=== PATIENT | female | born 1970 | race Two or more races ===

== ENCOUNTER → 2020-02-11 | Day surgery (SDC) | payer OTHER ==
[~2020-02-11] VITALS: Ht 157.5 cm; Wt 66.2 kg
[2020-02-11] VITALS (10 sets, daily range): BP systolic 117–135; BP diastolic 78–89
[~2020-02-11] MED LIST: Bupivacaine 0.25% Inj 30ml INJ ONE; Bupivacaine w/Epi 0.5% 30ml Vial INJ ONE; D5 1/2NS 1,000 ML IV SCH; Duramorph PF 5mg/10ml amp ONE; Glycopyrrolate 0.2mg/ml 1ml Vial ONE; HYDROcodone/Acetamin 5/325 tab ORAL PRN; HYDROmorphone 1mg/ml Carpuject SUBQ PRN; Kenalog-40 1ml Vial ONE; Ketorolac 30mg Inj ONE; LR 1000ml ONE; Lidocaine 1% 10mg/ml/Epi 0.005mg/ml 30ml vial INJ ONE; Lidocaine 1% MPF 10mg/ml 5ml ONE; Metoclopramide 10mg/2ml Inj IVP PRN; Metoclopramide 10mg/2ml Inj ONE; Midazolam 2mg/2ml Inj ONE; NS Irrig 2000ml IRRIG ONE; OMEPRAZOLE40 M1 ORAL; Tylenol #3 tab (300mg/30mg) ORAL PRN; ceFAZolin 1gm IVPB IVPB ONE; celeBREX 200mg Cap **SURGERY PATIENTS ONLY ORAL ONE; fentaNYL 100 mcg/2 mL IV ONE; fentaNYL 100 mcg/2 mL IV PRN; oxyCONTIN 20mg tab ORAL ONE
--- NOTE | 2020-02-11 07:48 | Operative Note - PDOC ---
Operative Note Operative Note Pre-op Diagnosis: left knee internal derangment Procedure: see op report Post-op Diagnosis: same as pre-op plus Operative Findings: consistent w/pre-op dx studies Anesthesia: regional Specimen: none Complications: none Condition: stable Implant(s) used?: No Alexis Julio MD Feb 11, 2020 07:48
--- NOTE | 2020-02-11 07:48 | Pre-Procedure Note/Attestation ---
Pre-Procedure Note/Attestation Complete Prior to Procedure Planned Procedure: left Procedure Narrative: knee arthroscopy, possible menisectomy Indications for Procedure Pre-Operative Diagnosis: left knee internal derangment Attestation I attest that I discussed the nature of the procedure; its benefits; risks and complications; and alternatives (and the risks and benefits of such alternatives ), prior to the procedure, with the patient (or the patient's legal retail service representative). I attest that, if there was a reasonable possibility of needing a blood transfusion, the patient (or the patient's legal retail service representative) was given the [facility] standardized written summary, pursuant to the [place] Blood Safety Act ([place] Health and Safety Code # 1645, as amended). I attest that I re-evaluated the patient just prior to the surgery and that there has been no change in the patient's H&P, except as documented below: Alexis Julio MD Feb 11, 2020 07:48
--- NOTE | 2020-02-11 12:57 | Anethesia Preoperative Eval ---
Anesthesia Pre-op PMH/ROS General Date of Evaluation: Feb 11, 2020 Time of Evaluation: 12:21 Anesthesiologist: espinoza ASA Score: ASA 2 Mallampati Score Class I : Soft palate, uvula, fauces, pillars visible Class II: Soft palate, uvula, fauces visible Class III: Soft palate, base of uvula visible Class IV: Only hard plate visible Mallampati Classification: Class II Surgeon: antonio Diagnosis: knee pain Surgical Procedure: left knee arthroscopy Anesthesia History: none Family History: no anesthesia problems Allergies: Coded Allergies: No Known Allergies (Unverified , 02/10/20) Medications: see eMAR Patient NPO?: Yes NPO Date: Feb 11, 2020 NPO Time: 00:01 Past Medical History Cardiovascular: Denies: HTN, CAD, [place], valve dz, arrhythmia, other Pulmonary: Denies: asthma, COPD, JORGE, other Gastrointestinal/Genitourinary: Reports: GERD; Denies: CRI, ESRD, other Neurologic/Psychiatric: Denies: dementia, CVA, depression/anxiety, TIA, other Endocrine: Denies: DM, hypothyroidism, steroids, other HEENT: Denies: cataract (L), cataract (R), glaucoma, [place] (L), [place] (R), other Hematology/Immune: Denies: anemia, DVT, bleeding disorder, other Musculoskeletal/Integumentary: Reports: OA; Denies: RA, DJD, DDD, edema, other PSxH Narrative: knee surgery Anesthesia Pre-op Phys. Exam Physician Exam Last Vital Signs Date Time Temp Pulse Resp B/P (MAP) Pulse Ox O2 Delivery O2 Flow Rate FiO2 02/11/20 08:29 Room Air 02/11/20 08:23 97.4 55 18 130/78 99 Constitutional: NAD Neurologic: CN 2-12 intact Cardiovascular: RRR Respiratory: CTA Gastrointestinal: S/NT/ND Airway Exam Mallampati Classification 2 Mallampati Score: Class II MO: full ROM: full Dentures: no upper, no lower Anesthesia Pre-op A/P Studies Pre-op Studies: EKG - sr Risk Assessment & Plan Assessment: covid neg Plan: general Status Change Before Surgery: No Pre-Antibiotics Drug: ancef Given Within 1 Hr of Incision: Yes Time Given: 12:30 Mer Calix CRNA Feb 11, 2020 12:57
--- NOTE | 2020-02-11 13:13 | Immediate Post-Op Evaluation ---
Immediate Post-Op Evalulation Immediate Post-Op Evalulation Procedure: left knee scope Date of Evaluation: Feb 11, 2020 Time of Evaluation: 13:12 IV Fluids: 800 Blood Pressure Systolic: 124 Blood Pressure Diastolic: 78 Pulse Rate: 92 Respiratory Rate: 14 O2 Sat by Pulse Oximetry: 100 Temperature (Fahrenheit): 97.5 Nausea: No Vomiting: No Complications none Patient Status: awake, reacts, patent Hydration Status: adequate Drug: ancef Given Within 1 Hr of Incision: Yes Time Given: 12:30 Mer Calix CRNA Feb 11, 2020 13:13
--- NOTE | 2020-02-11 13:47 | 48 Hour Post Anesthesia Eval ---
Post Anesthesia Evaluation Procedure: left knee scope Date of Evaluation: Feb 11, 2020 Time of Evaluation: 13:47 Blood Pressure Systolic: 135 0: 84 Pulse Rate: 80 Respiratory Rate: 14 O2 Sat by Pulse Oximetry: 98 Airway: patent Nausea: No Vomiting: No Hydration Status: adequate Cardiopulmonary Status: stable Mental Status/LOC: patient returned to baseline Post-Anesthesia Complications: none Follow-up care needed: N/A Mer Calix CRNA Feb 11, 2020 13:47
--- NOTE | 2020-02-11 14:44 | Operative Note - Dictated ---
DATE OF OPERATION: 02/11/2020 NOTE: INCOMPLETE DICTATION POSTOPERATIVE DIAGNOSIS: Left knee internal derangement and a possible meniscal tear. POSTOPERATIVE DIAGNOSES: 1. Grade 2 chondral damage, medial femoral condyle with loose chondral flaps. 2. Discoid lateral meniscus 3. Lateral tibial plateau fracture. PROCEDURE: 1. Left knee diagnostic arthroscopy and chondroplasty, medial femoral condyle. 2. Synovectomy of the medial, lateral, and patellofemoral compartment. SURGEON: Alexis Julio MD. ANESTHESIA: General. INDICATION FOR PROCEDURE: The patient is a pleasant female with significant injury to the left knee. The patient continued to have lateral joint sided pain. MRI which showed possible meniscal tear secondary to chondral damage after . INCOMPLETE DICTATION Alexis Julio M.D. DR: TELMA JOB#: [id number] CC:
--- NOTE | 2020-02-11 16:00 | Operative Note - Dictated ---
DATE OF OPERATION: 02/11/2020 PREOPERATIVE DIAGNOSIS: Left knee lateral tibial plateau with possible meniscal tear and secondary chondral damage. POSTOPERATIVE DIAGNOSES: 1. Left medial compartment grade 2 chondral flaps. 2. Hypertrophic synovial tissue medial, lateral, and patellofemoral compartment. 3. Lateral discoid meniscus. 4. Lateral tibial plateau fracture. PROCEDURE: 1. Left knee diagnostic arthroscopy with synovectomy of the medial, lateral, and patellofemoral compartment. 2. Gentle chondroplasty medial femoral condyle. SURGEON: Alexis Julio MD. ANESTHESIA: General. INDICATION FOR PROCEDURE: Patient is a pleasant female who has had significant injury to left knee. Patient diagnosed with a lateral tibial plateau fracture with associated meniscal tear. She elected to undergo left knee diagnostic arthroscopy and possible meniscectomy. Risks, limitations, expectations, and complications of the procedure were discussed in detail. All questions addressed. DESCRIPTION OF PROCEDURE: After informed consent was obtained, patient was brought to the operating room. Patient was placed under anesthesia. Left leg was prepped and draped in a sterile manner. Time-out was performed. Inferolateral stab incision was then made. Camera was placed in the patellofemoral compartment. There was hypertrophic synovial tissue making visualization somewhat difficult. Medial compartment was entered. Medial working portal was established. Synovectomy of the medial compartment extending in the intercondylar notch lateral compartment was performed. The medial meniscus probe noted to be intact. There were some chondral flaps on the posterior medial aspect of the femoral condyle. Gentle chondroplasty was performed. The ACL was probed, noted to be intact. Lateral compartment was entered and there was a type 3 discoid lateral meniscus. No chondral damage in the lateral femoral condyle. The camera was then repositioned in the patellofemoral compartment. Completion of the synovectomy was performed. Once that was done, the instruments were removed. Portal sites closed using 3-0 Monocryl sutures. Steri-Strips and a sterile dressing were applied. ESTIMATED BLOOD LOSS: None. COMPLICATIONS: None. SPECIMENS: None. IMPLANTS: None. Alexis Julio M.D. DR: LION JOB#: [id number] CC: TEMITOPE
== END | disposition home or self-care (01) ==
LOC: SUR 07:47
DX: M23.301 Other meniscus derangements, unspecified lateral meniscus, left knee (principal); M67.262 Synovial hypertrophy, not elsewhere classified, left lower leg; K21.9 Gastro-esophageal reflux disease without esophagitis; M19.90 Unspecified osteoarthritis, unspecified site; Z90.710 Acquired absence of both cervix and uterus; S82.142A Displaced bicondylar fracture of left tibia, initial encounter for closed fracture; X58.XXXA Exposure to other specified factors, initial encounter; Y92.9 Unspecified place or not applicable
CPT/HCPCS: 29876; 94003; J0690; J1885; J2250; J2405; J2704; J2765; J3010; J3301; J3490; J7120; U0002; 94150

== ENCOUNTER 2020-08-10 06:35 | Inpatient (IN) | payer OTHER ==
[~2020-08-10] VITALS: Ht 154.9 cm; Wt 63.5 kg
[2020-08-10] VITALS (17 sets, daily range): BP systolic 104–144; BP diastolic 64–93
[~2020-08-10 06:35] MED LIST changes: -Bupivacaine 0.25% Inj 30ml INJ ONE; -Bupivacaine w/Epi 0.5% 30ml Vial INJ ONE; -D5 1/2NS 1,000 ML IV SCH; -Duramorph PF 5mg/10ml amp ONE; -Glycopyrrolate 0.2mg/ml 1ml Vial ONE; -HYDROcodone/Acetamin 5/325 tab ORAL PRN; -HYDROmorphone 1mg/ml Carpuject SUBQ PRN; +IBUPROFEN600 M1 ORAL; -Kenalog-40 1ml Vial ONE; -Ketorolac 30mg Inj ONE; -LR 1000ml ONE; -Lidocaine 1% 10mg/ml/Epi 0.005mg/ml 30ml vial INJ ONE; -Lidocaine 1% MPF 10mg/ml 5ml ONE; -Metoclopramide 10mg/2ml Inj IVP PRN; -Metoclopramide 10mg/2ml Inj ONE; -Midazolam 2mg/2ml Inj ONE; -NS Irrig 2000ml IRRIG ONE; -Tylenol #3 tab (300mg/30mg) ORAL PRN; -ceFAZolin 1gm IVPB IVPB ONE; -celeBREX 200mg Cap **SURGERY PATIENTS ONLY ORAL ONE; -fentaNYL 100 mcg/2 mL IV ONE; -fentaNYL 100 mcg/2 mL IV PRN; -oxyCONTIN 20mg tab ORAL ONE
[2020-08-10] MEDS ORDERED: ceFAZolin sod 2 GM in NS 55 ML IVPB ONE (07:00)
--- NOTE | 2020-08-10 07:14 | Pre-Procedure Note/Attestation ---
Pre-Procedure Note/Attestation Complete Prior to Procedure Planned Procedure: not applicable Procedure Narrative: C56 artificial disc replacment and C67 anterior cervical discectomy and fusion Indications for Procedure Pre-Operative Diagnosis: C56,67 herniation Attestation I attest that I discussed the nature of the procedure; its benefits; risks and complications; and alternatives (and the risks and benefits of such alternatives), prior to the procedure, with the patient (or the patient's legal construction sales representative). I attest that, if there was a reasonable possibility of needing a blood transfusion, the patient (or the patient's legal construction sales representative) was given the [facility] standardized written summary, pursuant to the [place] Blood Safety Act ([place] Health and Safety Code # 1645, as amended). I attest that I re-evaluated the patient just prior to the surgery and that there has been no change in the patient's H&P, except as documented below: Dexter Varner MD Aug 10, 2020 07:14
[2020-08-10] MEDS ORDERED: HYDROcodone/Acetamin 7.5/325 tab ORAL PRN ×3 (07:15→08:00)
[2020-08-10] MEDS ORDERED: Morphine Sulfate 2mg/ml Inj(IV/IM USE ONLY) IV PRN (07:15)
[2020-08-10] MEDS ORDERED: Morphine Sulfate 4mg/ml Inj (IV USE ONLY) IV PRN ×2 (07:15)
[2020-08-10] MEDS ORDERED: Milk of Magnesia 30ml Ud ORAL PRN (07:15)
[2020-08-10] MEDS ORDERED: Naloxone 0.4mg/ml Inj IVP PRN (07:15)
[2020-08-10] MEDS ORDERED: Metoclopramide 10mg/2ml Inj IVP PRN ×2 (07:15→08:00)
[2020-08-10] MEDS ORDERED: Chloraseptic Spray 20mL Bottle ORAL PRN (07:15)
[2020-08-10] MEDS ORDERED: HYDROmorphone 1mg/ml Carpuject IVP PRN (07:15)
[2020-08-10] MEDS ORDERED: HYDROcodone/Acetamin 5/325 tab ORAL PRN ×2 (07:15→08:00)
--- NOTE | 2020-08-10 07:15 | Brief Operative Note ---
Immediate Post Operative Note Operative Note Chief Complaint: neck pain and radic Pre-op Diagnosis: C56,67 herniation Procedure: C56 artificial disc replacment and C67 anterior cervical discectomy and fusion Post-op Diagnosis: same as pre-op Findings: consistent w/pre-op dx studies Surgeon: Telly Third Hand: Sumanth Anesthesiologist: Rommel Anesthesia: general Specimen: none Complications: none Condition: stable Fluids: IVF Estimated Blood Loss: minimal Drains: none Implant(s) used?: Yes - nuvasive interlock c, prodisc 5 Dexter Varner MD Aug 10, 2020 07:15
[2020-08-10] MEDS ORDERED: TYLENOL EXTRA500 MG ORAL ×2 (07:16)
[2020-08-10] MEDS ORDERED: fentaNYL 100 mcg/2 mL IV PRN (08:00)
[2020-08-10] MEDS ORDERED: Midazolam 2mg/2ml Inj IVP PRN (08:00)
[2020-08-10] MEDS ORDERED: Labetalol 5mg/ml 20ml vial IV PRN (08:00)
[2020-08-10] MEDS ORDERED: oxyCODONE HCL/Acetaminophen 5/325mg ORAL PRN (08:00)
[2020-08-10] MEDS ORDERED: Hydromorphone 0.5mg/0.5ml inj IVP PRN (08:00)
[2020-08-10] MEDS ORDERED: DiphenhydrAMINE 50mg/ml Inj IVP PRN (08:00)
[2020-08-10] MEDS ORDERED: Atropine Sulfate 0.4mg/ml inj IVP PRN (08:00)
[2020-08-10] MEDS ORDERED: Meperidine 25mg/1ml Inj (FOR RIGORS ONLY) IV PRN (08:00)
[2020-08-10] MEDS ORDERED: Acetaminophen (Non formulary) 100 ML IV ONE (08:00)
[2020-08-10] MEDS ORDERED: LR 1000ml 1,000 ML IVLG SCH (08:00)
[2020-08-10] MEDS ORDERED: Ketorolac 30mg Inj IV PRN ×2 (08:00)
[2020-08-10] MEDS ORDERED: LORazepam Inj 2mg/ml 1ml IV PRN (08:00)
--- NOTE | 2020-08-10 08:01 | Anethesia Preoperative Eval ---
Anesthesia Pre-op PMH/ROS General Date of Evaluation: Aug 10, 2020 Time of Evaluation: 09:15 Anesthesiologist: Jose ASA Score: ASA 3 Mallampati Score Class I : Soft palate, uvula, fauces, pillars visible Class II: Soft palate, uvula, fauces visible Class III: Soft palate, base of uvula visible Class IV: Only hard plate visible Mallampati Classification: Class II Surgeon: Telly Diagnosis: Neck Pain Surgical Procedure: ADR C5-6, ACDF C6-7 Anesthesia History: none Family History: no anesthesia problems Allergies: Coded Allergies: No Known Allergies (Unverified , 08/08/20) Medications: see eMAR Patient NPO?: Yes Past Medical History Gastrointestinal/Genitourinary: Reports: GERD Endocrine: Reports: DM PSxH Narrative: R Hallux SX, L Wrist SX, WILLOW C/S Anesthesia Pre-op Phys. Exam Physician Exam Last Vital Signs Date Time Temp Pulse Resp B/P (MAP) Pulse Ox O2 Delivery O2 Flow Rate FiO2 08/10/20 07:38 Room Air 08/10/20 07:18 97.0 20 124/78 (93) 98 Constitutional: NAD Neurologic: CN 2-12 intact Cardiovascular: RRR Respiratory: CTA Gastrointestinal: S/NT/ND Airway Exam Mallampati Score: Class II MO: full ROM: limited Teeth: missing, intact Anesthesia Pre-op A/P Risk Assessment & Plan Assessment: ASA 3 Plan: GA, SED, GlideScope Status Change Before Surgery: No Pre-Antibiotics Dru Grams Ancef IV Given Within 1 Hr of Incision: Yes Time Given: 09:36 Gilberto Garcia MD Aug 10, 2020 08:00
--- NOTE | 2020-08-10 08:06 | Immediate Post-Op Evaluation ---
Immediate Post-Op Evalulation Immediate Post-Op Evalulation Procedure: ADR C5-6, ACDF C6-7 Date of Evaluation: Aug 10, 2020 Time of Evaluation: 11:52 IV Fluids: 1000 LR Blood Products: 0 Estimated Blood Loss: 50 Urinary Output: 600 Blood Pressure Systolic: 123 Blood Pressure Diastolic: 83 Pulse Rate: 78 Respiratory Rate: 16 O2 Sat by Pulse Oximetry: 100 Temperature (Fahrenheit): 97 Pain Score (1-10): 2 Nausea: No Vomiting: No Complications 0 Patient Status: awake, reacts, patent, extubated, none Hydration Status: adequate Dru Grams Ancef IV Given Within 1 Hr of Incision: Yes Time Given: 09:36 Gilberto Garcia MD Aug 10, 2020 08:06
[2020-08-10] MEDS ORDERED: Sodium Chloride 10ml vial INJ ONE ×2 (08:16→09:00)
[2020-08-10] MEDS ORDERED: Lidocaine 1% MPF 10mg/ml 5ml ONE ×2 (08:16→09:08)
[2020-08-10] MEDS ORDERED: NS Irrig 1000ml ONE (09:00)
[2020-08-10] MEDS ORDERED: propofoL 1,000mg/100ml IV ONE (09:00)
[2020-08-10] MEDS ORDERED: Rocuronium Bromide 50mg/5ml Inj IV ONE (09:00)
[2020-08-10] MEDS ORDERED: LR 1000ml ONE (09:00)
[2020-08-10] MEDS ORDERED: Sterile Water Irrig 1000ml IRRIG ONE (09:00)
[2020-08-10] MEDS ORDERED: Thrombin 5000 units TOPIC ONE (09:15)
[2020-08-10] MEDS ORDERED: Bacitracin 50000 Units Vial ONE (09:15)
[2020-08-10] MEDS ORDERED: Gelfoam Size TOPIC ONE (09:16)
[2020-08-10] MEDS ORDERED: Glycopyrrolate 0.2mg/ml 1ml Vial ONE ×2 (10:34→10:35)
[2020-08-10] MEDS ORDERED: Neostigmine 1mg/ml 10ml Inj ONE (10:35)
--- NOTE | 2020-08-10 11:38 | 48 Hour Post Anesthesia Eval ---
Post Anesthesia Evaluation Procedure: ADR C5-6, ACDF C6-7 Date of Evaluation: Aug 10, 2020 Time of Evaluation: 14:23 Blood Pressure Systolic: 133 0: 78 Pulse Rate: 74 Respiratory Rate: 18 Temperature (Fahrenheit): 98 O2 Sat by Pulse Oximetry: 100 Airway: patent Nausea: No Vomiting: No Pain Intensity: 2 Hydration Status: adequate Cardiopulmonary Status: Stable Mental Status/LOC: patient returned to baseline Follow-up Care/Observations: 0 Post-Anesthesia Complications: 0 Follow-up care needed: N/A Gilberto Garcia MD Aug 10, 2020 11:38
--- NOTE | 2020-08-10 13:00 | NUR ---
NURSE NOTES: Admitted pt from OR department. s/p ADR and ACDF. site covered with clear dressing. no bleeding noted. pt c/o pain 08/09, does not want pain med at this time. no acute distress noted. on O2 @ 2l/min via NC. call light within reach.
--- NOTE | 2020-08-10 13:08 | Diagnostic Imaging Report ---
XRAY C Spine 2-3v CLINICAL HISTORY: Neck pain. COMPARISON: None FINDINGS: Fluoroscopy independent procedure performed for cervical fusion. 30.4 seconds of fluoroscopy time utilized by the ordering physician. Total cumulative dose is 2.9 mGy and 0.22405 Gy.cm2. Total of 4 spot images are obtained . IMPRESSION: FLUOROSCOPY GUIDED PROCEDURE.
--- NOTE | 2020-08-10 14:00 | NUR ---
NURSE NOTES: MADE ROUNDS PT ALERT AND AWAKE, NO ACUTE DISTRESS NOTED, RATES PAIN 3/10. PT SAID SHE DOES NOT WANT PAIN MED AT THIS TIME
[2020-08-10] MEDS: Docusate 100mg cap ORAL SCH (17:49)
[2020-08-10] MEDS: ceFAZolin sod 1 GM in D5W 55 ML IV SCH (17:49)
--- NOTE | 2020-08-10 19:21 | NUR ---
NURSE HAND-OFF: Important Events on Shift:S/P NECK SURGERY Patient Status: STABLE Diet: LIQUID DIET Pending Orders: [] Pending Results/Labs:[] Pending MD notification:[] Latest Vital Signs: Temperature 98.6 , Pulse 88 , B/P 123 /64 , Respiratory Rate 18 , O2 SAT 100 , Nasal Cannula, O2 Flow Rate 2.0 . Vital Sign Comment: STABLE Latest Duran Fall Score: 20 Fall Risk: Low Risk Safety Measures: Call light Within Reach, Bed Alarm Zone 1, Side Rails Side Rails x3, Bed position Low and Locked. Fall Precautions: Report given to TAD.
--- NOTE | 2020-08-10 19:30 | NUR ---
NURSE NOTES: Patient awake in bed, alert and oriented x4, on room air, with complaint of moderate pain round surgical site. Will medicate as ordered. Call light and needs in reach. Bed in lowest and lock engaged. Will continue to monitor.
--- NOTE | 2020-08-10 21:00 | NUR ---
NURSE NOTES: Patient complained of moderate pain around her neck. Offered pain meds as ordered but patient wanted low dose. Medicated. See emar.
--- NOTE | 2020-08-10 22:14 | Operative Note - Dictated ---
DATE OF OPERATION: 08/10/2020 SURGEON: Dexter Varner MD, orthopedic spine surgeon. WET PROCESS MILLER: Alexis Julio MD PREOPERATIVE DIAGNOSES: 1. Intractable neck pain. 2. Radiculopathy. 3. Herniation, C5-C6, C6-C7. 4. Neural foraminal stenosis C5-C6, C6-C7. 5. Stenosis. POSTOPERATIVE DIAGNOSES: 1. Intractable neck pain. 2. Radiculopathy. 3. Herniation, C5-C6, C6-C7. 4. Neural foraminal stenosis C5-C6, C6-C7. 5. Stenosis. PROCEDURE PERFORMED: 1. Artificial disc replacement of C5-C6 using ProDisc C size 5, 2. Anterior cervical discectomy and fusion of C6-C7 using Nuvasive Interlock C size 6 with 1 mL of Osteocel allograft bone. 2. Use of intraoperative microscope. 3. Motor evoked potential monitoring. 4. Somatosensory evoked potential monitoring. 5. Supervision and interpretation of fluoroscopy. COMPLICATIONS: None. ANESTHESIA: General. ESTIMATED BLOOD LOSS: Less than 100 mL. INDICATIONS FOR SURGERY: This patient is a 50-year-old female who has a history of intractable neck pain, radiculopathy, herniation, C5-C6, C6-C7, neural foraminal stenosis C5-C6, C6-C7, stenosis. We tried a course of conservative management but despite this course there was still a significant component of persistent, recalcitrant neck pain and arm pain. The MRI demonstrated significant neural foraminal compromise secondary to disc herniations at C5-C6, C6-C7. We had a long discussion with Nicole regarding the risks and benefits of surgery. Our discussion included but was not limited to nonoperative management, chiropractic management, another epidural steroid injection as well definitive management in the form of surgery. We recommended an anterior cervical discectomy and fusion of C5-C6 using ProDisc C size 5, C6-C7 using Nuvasive Interlock C size 6 with 1 mL of Osteocel allograft bone as final definitive management. We reviewed the risks and benefits of surgery with the patient. Our discussion included a comprehensive review of the clinical issues and the nature of the clinical decision. We reviewed the alternatives, including doing nothing. The patient elected to proceed accordingly with anterior cervical discectomy and fusion of C6-C7 and artificial disc replacement of C56. We had a long discussion regarding the risks, alternatives and benefits of surgery. Our description of the risks included a discussion in person as well as a signed consent which detailed all pertinent risks from the procedure itself. Briefly, our discussion included but was not limited to infection, bleeding, pseudarthrosis, spinal cord injury, neurovascular injury, dural tear, CSF leak, neuropathy, paralysis, permanent weakness/drop foot/drop arm, paresthesias, blindness, palsy and weakness. The patient understood there may be a need for a revision surgery or additional procedures. Approach-related complications including dysphonia, dysphagia, blindness, permanent vocal cord and neural injury, hematoma, swallowing and breathing difficulty. Medical complications were reviewed including liver, kidney, shock, cardiopulmonary failure, anesthesia complications including , swelling, damage to the musculature, larynx/voice injury or loss, esophagus/throat, trachea, blood vessels and muscles/muscular sprain and lungs/pneumothorax during this surgical procedure; injury to deeper structures may be temporary or permanent. After this review of risks, the patient understood these and elected to proceed. A written and verbal consent was given. We discussed the pros and cons of all the alternatives. We discussed the uncertainties associated with the decision. Afterwards I assessed the patient's understanding and explored their preferences. All questions were answered and no guarantees were given. Medical clearance was obtained prior to surgery. INTRAOPERATIVE FINDINGS: C5-C6: There was a tear noted in the posterior longitudinal ligament approximately 10 degrees inline with the fibers of the PLL. The torn edges appeared frayed. These were mobilized with a Microsect curette until the entirety of the nucleus pulposus was resected from the foramina itself. It was causing neural foraminal impingement, right more than left sided. I should note the disc itself throughout was soft and spongy. This was not calcified, desiccated, or collapsed. No anterior or posterior spurs noted. The latter findings will be more inline with a degenerative process, which we did not appreciate. C6-C7: The disc area was also soft and spongy. Appeared well-hydrated. It was not decreased in height. There were no bone spurs noted. Upon resection of the disc, I turned attention to the posterior longitudinal ligament from the right side. There was a tear noted. The edges of the tear appeared fresh. Using Microsect curette, the disc itself was mobilized away from the torn frayed edges giving rise to herniation of nucleus pulposus, which was causing significant amount of thecal sac and neural foraminal stenosis right-sided. This was resected with Kerrison 1 and Kerrison 2 rongeurs until complete neural foraminotomy was performed. I should note the disc itself was soft and mobile. The disc was not dehydrated, calcified, or collapsed, which are findings we tend to see in a more degenerative process, which is not the case here. DESCRIPTION OF PROCEDURE: Under the benefit of general endotracheal anesthesia and with the assistance of the entire operative team, the patient was moved from the rorange onto the operative table in the supine position. The head was secured and carefully positioned appropriately. Bilateral arms were secured with Gelpads and foam and all bony prominences were padded. For the bilateral lower extremities SCD and EVENS hose were placed for DVT prophylaxis. A surgical timeout was called which corroborated our planned procedure of anterior cervical discectomy and fusion of C6-C7 and artificial disc replacement of C56. Preoperative antibiotics were administered within 30 minutes of the incision for antibiotic prophylaxis. Using lateral fluoroscopic radiography, the operative levels were delineated. Next the wound was prepped and draped with Chlorhexidine and sterile drapes. An incision was based on lateral fluoroscopy and we centered our incision at the C5-C6, C6-C7 interspace and next using a standard Hernández-Arnold anterior based approach the incision was taken down through the skin and subcutaneous tissues until the vertebral bodies and their corresponding disc spaces were visualized. A needle was placed into the interspace to confirm placement of the operative interspace and we performed the remainder of procedure under microscopic visualization. Next, using a bipolar and Bovie cautery to ensure meticulous hemostasis, the longus colli was mobilized bilaterally and retractors were placed deep to the longus colli bilaterally to address retraction. Next we turned our attention to the radical anterior discectomy. This was initially performed at C5-C6. First by using a 15 blade scalpel followed by narrow pituitaries and a micro-sect 5-B curette was used to denude the endplate of all cartilaginous tissue. Next using a BitDefender Alexander AM8 drillbit the endplates were denuded of cartillage in a [id number] and layer by layer fashion, and ultimately the posterior uncinate joints bilaterally and posterior osteophytic lips and margins causing central and lateral impingement were carefully denuded until visualization of the posterior longitudinal ligament was possible. An endplate preparation was performed in the exact same fashion using an intervertebral gang head saw operator, sequential distraction was obtained throughout the disc space. We saw a tear/rent in the PLL and this was carefully mobilized and dissected using a micro-set 1-B curet until we visualized a broad-based disc herniation with compression of the spinal cord as well as neural foramina which was right more than left sided. This neural foraminal compression was carefully resected using a Kerrison-1 and Kerrison-2 rongeurs until complete decompression of the spinal cord was visualized and complete decompression of the neural foramina and nerve root therein as well as the axilla and lateral margin of the nerve root was visualized and subsequently completely decompressed. The family was notified at one hour intervals throughout the procedure to provide for consistent updates. Next we turned our attention to the radical anterior discectomy at the C6-C7 level. First by using a 15 blade scalpel followed by narrow pituitaries and a micro-sect 5-B curette was used to denude the endplates as they were denuded of cartillage in a [id number] and layer by layer fashion, and ultimately the posterior uncinate joints bilaterally and posterior osteophytic lips and margins causing central and lateral impingement were carefully denuded until visualization of the posterior longitudinal ligament was possible. An endplate preparation was performed in the exact same fashion using an intervertebral gang head saw operator, sequential distraction was obtained throughout the disc space. We saw a tear/rent in the PLL and this was carefully mobilized and dissected using a micro-set 1-B curet until we visualized a broad-based disc herniation with compression of the spinal cord as well neural foramina which was right more than left sided. This neural foraminal compression was carefully resected using a Kerrison-1 and Kerrison-2 rongeurs until complete decompression of the spinal cord was visualized and complete decompression of the neural foramina and nerve root therein as well as the axilla and lateral margin of the nerve root was visualized and subsequently completely decompressed. We next turned our attention towards trialing our implant within the disc space. We initially tried size 5 at the C56 level and the ProDisc C size 5 appeared to be appropriate under AP and lateral fluoroscopy as well as in terms of its height, depth, width and lack of toggle. The Prodisc C implant was then carefully advanced and secured into their intervertebral spaces under direct visualization and with supervision of AP and lateral fluoroscopic views. We next turned our attention towards trialing our implant within the C67 disc space. We initially tried size 5 and afterwards size 6 trial from the Nuvasive Interlock C size 6 at each level, which appeared to be appropriate under AP and lateral fluoroscopy as well as in terms of its height, depth, width and lack of toggle. The PEEK polyetheretherketone interbody cages were then both packed with allograft bone from Osteocel and local autograft bone matrix. Next these were then carefully advanced and secured into their intervertebral spaces under direct visualization and with supervision of AP and lateral fluoroscopic views. We next turned our attention towards plating. Plating was performed with 3 screws from the nuvasive interlock C implant and confirmed under AP and lateral fluoroscopy and confirmed to be in excellent position. After a finger sweep we confirmed removal of all sponges. The retractor was removed and we next turned our attention to meticulous hemostasis with FloSeal and bipolar cautery. After the sponge and needle count was again found to be correct with our second count, we next turned our attention to closure. The wound was again copiously irrigated with antibiotic impregnated saline. Closure consisted of 4-0 clear nylon for the platysma, and 6-0 clear nylon for the superficial skin. Final skin closure and dressings consisted of Dermabond. Prior to final closure, a final radiograph was obtained which demonstrated the hardware is intact with excellent position throughout. The patient tolerated the procedure well. The patient was carefully extubated after the conclusion of surgery. We discussed the findings of the surgery with the family upon completion of the case. At this point the patient was transferred to the spine floor for further observation. Dexter Varner M.D. DR: SUZANNA JOB#: [id number] CC: TEMITOPE
[2020-08-11] MEDS: ceFAZolin sod 1 GM in D5W 55 ML IV SCH ×2 (01:16→08:16)
[2020-08-11 04:00] VITALS: BP 104/69
--- NOTE | 2020-08-11 07:01 | NUR ---
NURSE HAND-OFF: Important Events on Shift: pain mgt Patient Status: Diet: Pending Orders: Pending Results/Labs: Pending MD notification: Latest Vital Signs: Temperature 98.5 , Pulse 70 , B/P 104 /69 , Respiratory Rate 18 , O2 SAT 97 , Nasal Cannula, O2 Flow Rate 2.0 . Vital Sign Comment: Latest Duran Fall Score: 20 Fall Risk: Low Risk Safety Measures: Call light Within Reach, Bed Alarm Zone 1, Side Rails Side Rails x2, Bed position Low and Locked. Fall Precautions: Report given to PURNIMA Javed.
--- NOTE | 2020-08-11 07:10 | NUR ---
NURSE NOTES: Received hand-off report from PURNIMA Gunter. Patient in stable condition, breathing even and unlabored, resp 14/min, alert and oriented x4, able to verbalize needs well. Bed in lowest and locked position, bed alarm on, side rails upx2, call light within reach.
[2020-08-11 08:00] VITALS: BP 102/60
[2020-08-11] MEDS: Docusate 100mg cap ORAL SCH (08:15)
--- NOTE | 2020-08-11 08:37 | NUR ---
NURSE NOTES: Patient cooperative, neurologically intact, alert and oriented x4, pedal pushes 5/5.
--- NOTE | 2020-08-11 08:53 | General Progress Note ---
Subjective Allergies: Coded Allergies: No Known Allergies (Unverified , 08/08/20) Subjective care noted seen postop Objective Last 24 Hour Vital Signs Date Time Temp Pulse Resp B/P (MAP) Pulse Ox O2 Delivery O2 Flow Rate FiO2 08/11/20 08:00 97.4 89 20 102/60 (74) 97 08/11/20 04:00 98.5 70 18 104/69 (81) 97 08/10/20 23:55 98.2 77 18 104/64 (77) 97 08/10/20 21:00 Nasal Cannula 2.0 08/10/20 20:00 98.5 72 18 144/74 (97) 97 08/10/20 16:00 98.6 88 18 123/64 (83) 100 08/10/20 15:36 97.0 82 18 121/68 (85) 100 08/10/20 14:06 97.4 80 19 125/80 (95) 99 08/10/20 13:36 97.0 82 19 127/80 (96) 99 08/10/20 13:32 Nasal Cannula 2.0 08/10/20 13:06 97.8 86 19 128/78 (95) 99 08/10/20 13:00 97.8 08/10/20 12:44 97.5 61 16 135/85 100 Nasal Cannula 3 08/10/20 12:35 60 14 139/84 100 Nasal Cannula 3 08/10/20 12:25 64 14 144/84 100 Nasal Cannula 3 08/10/20 12:15 75 15 140/93 100 Simple Mask 6 08/10/20 12:00 76 14 137/86 100 Simple Mask 6 08/10/20 11:50 78 14 133/92 100 Simple Mask 6 08/10/20 11:45 78 16 131/89 100 Simple Mask 6 08/10/20 11:40 79 15 123/83 100 Simple Mask 6 08/10/20 11:38 74 18 100 08/10/20 11:37 78 16 100 08/10/20 11:35 97.0 76 12 135/85 100 Simple Mask 6 Intake and Output 0 08/10/20 08/11/20 19:00 07:00 Intake Total 1400 ml 415 ml Output Total 615 ml Balance 785 ml 415 ml Intake Oral 100 ml 360 ml IV Total 1300 ml 55 ml Output Urine Total 600 ml Estimated Blood Loss 15 ml # Voids 1 Height (Feet): 5 Height (Inches): 1.00 Weight (Pounds): 140 Objective WDWN NAD clear breath sounds bilaterally without rhonchi or wheeze [id number] without MRG NABS nontender no HSM no CCE nonfocal Assessment/Plan Assessment/Plan: neck pain and radiculopathy C56,67 herniation C56 artificial disc replacment and C67 anterior cervical discectomy and fusion PLAN 1. incentive spirometry 2. SCD 3. PT evaluation and therapy 4. Hydration 5. Pain management 6. discharge once stable with outpatient follow up Galen Albarran MD Aug 11, 2020 08:53
--- NOTE | 2020-08-11 11:40 | NUR ---
NURSE NOTES: Received order from Dr. Varner to discharge patient to home today. Patient notified of discharge order.
[2020-08-11 12:00] VITALS: BP 114/64
--- NOTE | 2020-08-11 12:00 | NUR ---
NURSE NOTES: Patient provided with instructions for medications, s/s to watch out for and report (dizziness, SOB, unrelenting pain), instructions for incentive spirometer use, instructions for smoking cessation and blood clots all given in sammarinese language, patient medication prescription given, patient belongings all accounted for and ensured in patient possession, patient belongings list signed. Patient verbalized understanding that if anything bad happens to report to the doctor right away or go to nearest hospital. Patient demonstrates steady gait. Alert and oriented x4, able to communicate needs well, breathing even and unlabored. No signs of distress noted upon discharge.
--- NOTE | 2020-08-11 12:06 | NUR ---
NURSE NOTES: IV on right antecubital 18g removed, gauze and tape applied, patient in stable condition, denies pain, vital signs within normal range, respirations 14/min, unlabored and even, patient ID band placed in shredding receptacle.
--- NOTE | 2020-08-11 12:10 | NUR ---
NURSE NOTES: Patient discharged, escorted patient to 's vehicle (Daniel) safely), patient in stable condition, denies dizziness or pain and all other untoward side effects.
--- NOTE | 2020-08-11 14:04 | Discharge Summary ---
Discharge Summary Discharge Summary _ Date of admission: 08/10/2020 Date of discharge: 08/11/[address] Varner History of Present Illness and Brief Hospital Course Ms. Gregg Schwarz is a 50-year-old female who presented to [facility] for a scheduled surgery. She had history of intractable neck pain, radiculopathy, herniation, and neural foraminal stenosis at C5-C6, C6 and C7. After long discussion, patient elected to proceed with surgery. Patient underwent artificial disc replacement of C5-C6, and anterior cervical discectomy and fusion of C6-C7. Patient tolerated the procedure well. Patient was transferred to the spine floor for further observation. The details of the operation can be found in the operative note by Dr. Varner. Patient was monitored closely after the surgery. Patient was medically stable for discharge and was discharged home on 08/11/2020. Consultants: None Discharge Condition Stable Discharge Activity As tolerated Discharge Diet Regular, cervical diet soft easy chew Final diagnoses Intractable neck pain. Radiculopathy. Herniation, C5-C6, C6-C7. Neural foraminal stenosis C5-C6, C6-C7. Stenosis. s/p artificial disc replacement of C5-C6 using ProDisc C size 5, s/p anterior cervical discectomy and fusion of C6-C7 using Nuvasive Interlock C size 6 with 1 mL of Osteocel allograft bone. I have been assigned to dictate discharge summary for this account. I was not involved in the patient's management Maurice Zavaleta Aug 11, 2020 14:04
== END 2020-08-11 12:10 | disposition home or self-care (01) | DRG 473 ==
LOC: SDSOVERFLO 06:35 → 4E 13:20
DX: M50.122 Cervical disc disorder at C5-C6 level with radiculopathy (principal); M48.02 Spinal stenosis, cervical region
CPT/HCPCS: 36415; 72040; 76000; 86850; 86900; 86901; 87081; J2405; J2710